=== PATIENT | female | born 1955 | race Caucasian/White ===

== ENCOUNTER 2021-12-21 16:07 | Emergency (ER) | payer MEDICARE ==
[2021-12-21 17:41] LABS: Bacteria,Urine 1+ /HPF (Negative); Bilirubin,Urine NEG (Negative); Blood,Urine NEG (Negative); Color,Urine Yellow (Yellow); Protein,Urine <15 mg/dL mg/dL (Negative); Urobilinogen,Urine < 2.0 mg/dL (<2.0)
[2021-12-21 18:36] LABS: Basophils # (Auto) 0.1 K/mm3 (0.0-0.1); Basophils % (Auto) 0.9 % (0.0-1.8); Eosinophils % (Auto) 0.6 % (0.0-4.3); Hematocrit 46.4 % (30.3-42.9); Hemoglobin 15.3 gm/dl (10.1-14.3); Lymphocytes # (Auto) 2.4 K/mm3 (1.2-5.4); Lymphocytes % (Auto) 30.2 % (13.4-35.0); Mean Corpuscular HGB Conc 33 % (30-34); Mean Corpuscular Volume 95 fl (79-97); Monocytes # (Auto) 0.6 K/mm3 (0.0-0.8); Monocytes % (Auto) 7.1 % (0.0-7.3); Platelet Count 225 K/mm3 (140-440); Red Blood Count 4.89 M/mm3 (3.65-5.03); Red Cell Distribution Width 14.3 % (13.2-15.2)
[2021-12-21 18:41] LABS: Alanine Aminotransferase 32 units/L (7-56); Albumin 4.6 g/dL (3.9-5); BUN/Creatinine Ratio 20; Blood Urea Nitrogen 16 mg/dL (7-17); Calcium 10.2 mg/dL (8.4-10.2); Hemolysis Index 3
[2021-12-22] MEDS ORDERED: INSULIN REGULAR, HUMAN 100 UNITS/1 ML IV ONE (02:42)
[2021-12-22] MEDS ORDERED: SODIUM CHLORIDE 0.9% 1000 ML 1,000 ML IV ONE (02:42)
[2021-12-22] MEDS ORDERED: IBUPROFEN 400 MG TAB PO ONE (02:53)
[2021-12-22] MEDS ORDERED: ACETAMINOPHEN 325 MG TAB PO ONE (02:53)
--- NOTE | 2021-12-22 02:57 | Emergency Department Report ---
ED General Adult HPI - General Chief complaint: Hyperglycemia Stated complaint: HIGH BLOOD SUGAR /CRAMP/CHEST DISCOMFORT/DRY COUGH Time Seen by Provider: 12/22/21 02:32 Source: patient, RN notes reviewed Mode of arrival: Ambulatory Limitations: No Limitations - History of Present Illness Initial comments: The patient was evaluated in the emergency department for symptoms described in the history of present illness. He/she was evaluated in the context of the global COVID-19 pandemic, which necessitated consideration that the patient might be at risk for infection with the virus that causes COVID-19. Institutional protocols and algorithms that pertain to the evaluation of patients at risk for COVID-19 are in a state of rapid change based on info rmation released by regulatory bodies including the CDC and federal and state organizations. These policies and algorithms were followed during the patient's care in the emergency department. Please note that these policies, procedures and recommendations changed on a rapid basis. Primary CARE doctor: Dr. Vianca Dobbs This patient is a 66-year-old female. She presents to the ER today with a request for medication refill; rybelsus 7 mg, which she has been out of for about 2 weeks, with secondary complaints of painless heart racing and fluttering, lower extremity pain and cramping, burning-like in nature. Patient currently denies headache, neck pain, chest pain, abdominal pain, shortness of breath, vomiting, diarrhea and dysuria. She endorses increased thirst. She also has chronic back pain, for which she receives steroid injections. She believes that her recent hemoglobin A1c decreased from 6.5-6.1. -: Gradual, week(s) Location: back, left, right, lower extremity Quality: other (Lower extremity cramping, burning) Consistency: constant Improves with: rest Worsens with: other (Movement, palpation and sleeping of lower extremity) - Related Data Previous Rx's Medication Instructions Recorded Last Taken Type Semaglutide [Rybelsus] 7 mg PO QAM #14 tab 12/22/21 Unknown Rx Allergies Allergy/AdvReac Type Severity Reaction Status Date / Time grass pollen Allergy Rash Verified 12/21/21 17:10 latex Allergy Rash Verified 12/21/21 17:10 metformin Allergy Unknown Verified 12/21/21 17:10 rosuvastatin Allergy Unknown Verified 12/21/21 17:10 Flu vaccine Allergy Unknown Uncoded 12/21/21 17:10 ED Review of Systems ROS: Stated complaint: HIGH BLOOD SUGAR /CRAMP/CHEST DISCOMFORT/DRY COUGH Other details as noted in HPI Constitutional: denies: fever Eyes: denies: eye discharge ENT: denies: hearing loss Respiratory: denies: cough Cardiovascular: denies: chest pain Endocrine: increased thirst Gastrointestinal: denies: abdominal pain, vomiting, diarrhea Genitourinary: denies: dysuria Musculoskeletal: back pain, arthralgia, myalgia Neurological: denies: weakness ED Past Medical Hx - Past Medical History Previous Medical History?: Yes Hx Diabetes: Yes Additional medical history: Arrhythmia - Surgical History Past Surgical History?: Yes Additional Surgical History: Hysterectomy - Medications Home Medications: Home Medications Medication Instructions Recorded Confirmed Last Taken Type Semaglutide [Rybelsus] 7 mg PO QAM #14 tab 12/22/21 Unknown Rx ED Physical Exam - General Limitations: No Limitations General appearance: alert, in no apparent distress, obese - Head Head exam: Present: atraumatic, normocephalic - Eye Eye exam: Present: normal appearance, EOMI. Absent: nystagmus - ENT ENT exam: Present: normal exam, normal orophraynx, mucous membranes moist, normal external ear exam - Neck Neck exam: Present: normal inspection, full ROM. Absent: tenderness, meningismus - Respiratory Respiratory exam: Present: normal lung sounds bilaterally. Absent: respiratory distress, wheezes, rales, rhonchi, stridor, decreased breath sounds - Cardiovascular Cardiovascular Exam: Present: regular rate, normal rhythm, normal heart sounds. Absent: bradycardia, tachycardia, irregular rhythm, systolic murmur, diastolic murmur, rubs, gallop - GI/Abdominal GI/Abdominal exam: Present: soft. Absent: distended, tenderness, guarding, rebound, rigid, pulsatile mass - Extremities Exam Extremities exam: Present: normal inspection, full ROM, pedal edema (1+ edema noted in the bilateral lower extremity), other (2+ pulses noted in the bilateral upper and lower extremities. There is no palpable cord. negative Homans sign. Muscular compartments are soft. The pelvis is stable.). Absent: calf tender ness - Back Exam Back exam: Present: normal inspection. Absent: tenderness, CVA tenderness (R), CVA tenderness (L), paraspinal tenderness, vertebral tenderness - Neurological Exam Neurological exam: Present: alert, oriented X3, other (No facial droop. Tongue midline. Extraocular movements intact bilaterally. Facial sensation intact to light touch in V1, V2, V3 distribution bilaterally. 5 and a 5 strength in 4 extremities. Sensation intact to light touch in 4 extremities.) - Psychiatric Psychiatric exam: Present: normal affect, normal mood - Skin Skin exam: Present: warm, dry, intact, normal color. Absent: rash ED Course Vital Signs 12/21/21 17:04 Temperature 98.2 F Pulse Rate 89 Respiratory 18 Rate Blood Pressure 130/82 O2 Sat by Pulse 96 Oximetry - Reevaluation(s) Reevaluation #1: 12/22/21 03:50 Differential diagnosis, including but not limited to: Medication refill, hyperglycemia, neuropathic pain Assessment and plan: 66-year-old female, who is afebrile, with reassuring vital signs, in no acute distress and clinically sober, GCS of 15, with a primary complaint of request for medication refill, secondary complaint of polydipsia, hyperglycemia, third complaint of burning lower extremity neuropathic pain. Patient received fluids and insulin. Hyperglycemia is chronic and without anion gap acidosis. We will give the patient a 2-week refill on her Rybelsus Educated patient as to the natural history of neuropathic pain. Patient is currently being seen by a pain specialist for pain injection for her lower back. She can take Tylenol and Motrin for her neuropathic pain, and I will defer to her primary care doctor to initiate additional medications for neuropathic pain. Patient is observed in this ER for hours without clinical decompensation. She is suitable for discharge with outpatient follow-up ED Medical Decision Making - Lab Data Result diagrams: 12/21/21 17:45 12/21/21 17:45 Vital Signs 12/21/21 17:04 Temperature 98.2 F Pulse Rate 89 Respiratory 18 Rate Blood Pressure 130/82 O2 Sat by Pulse 96 Oximetry Lab Results 12/21/21 12/21/21 12/21/21 Range/Units 17:08 17:45 17:45 WBC 8.1 (4.5-11.0) K/mm3 RBC 4.89 (3.65-5.03) M/mm3 Hgb 15.3 H (10.1-14.3) gm/dl Hct 46.4 H (30.3-42.9) % MCV 95 (79-97) fl MCH 31 (28-32) pg MCHC 33 (30-34) % RDW 14.3 (13.2-15.2) % Plt Count 225 (140-440) K/mm3 Lymph % (Auto) 30.2 (13.4-35.0) % Yell % (Auto) 7.1 (0.0-7.3) % Eos % (Auto) 0.6 (0.0-4.3) % Baso % (Auto) 0.9 (0.0-1.8) % Lymph # (Auto) 2.4 (1.2-5.4) K/mm3 Yell # (Auto) 0.6 (0.0-0.8) K/mm3 Eos # (Auto) 0.0 (0.0-0.4) K/mm3 Baso # (Auto) 0.1 (0.0-0.1) K/mm3 Seg Neutrophils % 61.2 (40.0-70.0) % Seg Neutrophils # 4.9 (1.8-7.7) K/mm3 Sodium 138 (137-145) mmol/L Potassium 4.8 (3.6-5.0) mmol/L Chloride 100.9 (98-107) mmol/L Carbon Dioxide 25 (22-30) mmol/L Anion Gap 17 mmol/L BUN 16 (7-17) mg/dL Creatinine 0.8 (0.6-1.2) mg/dL Estimated GFR > 60 ml/min BUN/Creatinine Ratio 20 % Glucose 397 H (65-100) mg/dL Calcium 10.2 (8.4-10.2) mg/dL Total Bilirubin 0.40 (0.1-1.2) mg/dL AST 13 (5-40) units/L ALT 32 (7-56) units/L Alkaline Phosphatase 79 (35-129) units/L Total Protein 6.6 (6.3-8.2) g/dL Albumin 4.6 (3.9-5) g/dL Albumin/Globulin Ratio 2.3 % Lipase 35 (13-60) units/L Urine Color Yellow (Yellow) Urine Turbidity Clear (Clear) Urine pH 6.0 (5.0-7.0) Ur Specific [place] 1.039 H (1.003-1.030) Urine Protein <15 mg/dl (Negative) mg/dL Urine Glucose (UA) >=500 (Negative) mg/dL Urine Ketones 20 (Negative) mg/dL Urine Blood Neg (Negative) Urine Nitrite Neg (Negative) Urine Bilirubin Neg (Negative) Urine Urobilinogen < 2.0 (<2.0) mg/dL Ur Leukocyte Esterase Neg (Negative) Urine WBC (Auto) 1.0 (0.0-6.0) /HPF Urine RBC (Auto) 4.0 (0.0-6.0) /HPF U Epithel Cells (Auto) 2.0 (0-13.0) /HPF Urine Bacteria (Auto) 1+ (Negative) /HPF - EKG Data -: EKG Interpreted by Ct EKG shows normal: sinus rhythm Rate: normal - EKG Data 12/22/21 03:47 The EKG is interpreted at 03: 00 Sinus rhythm, rate 65 bpm. Left axis deviation, normal P wave axis, normal intervals, nonspecific T wave abnormality. This is an abnormal EKG, there is a left anterior fascicular block. The patient denies chest pain. This EKG is not a STEMI Critical care attestation.: If time is entered above; I have spent that time in minutes in the direct care of this critically ill patient, excluding procedure time. ED Disposition Clinical Impression: Hyperglycemia, Medication refill, Neuropathic pain of both legs Disposition: 01 HOME / SELF CARE / HOMELESS Is pt being admited?: No Does the pt Need Aspirin: No Condition: Good Instructions: Neuropathic Pain Additional Instructions: Please adhere to a diabetic appropriate diet. Patient may reference the [place] [employer] website for instructions on how to construct an appropriate diabetic diet. Patient will receive a 2-week refill on her Rybelsus medication. Strongly encourage patient to follow-up before then with her primary care doctor, for a longer term refill. Patient may take [id number] ibuprofen and/or acetaminophen as needed for lower extremity pain/presumed neuropathic pain. Patient may also consult with her primary care doctor for additional interventions to assist with neuropathic pain. Patient may also consider complementary outpatient therapy, such as massage, acupuncture, Eastern medicine, or aquatic therapy/nonweightbearing exercise. Please drink at least 4 cups of water per day. Avoid consumption of heavy and spicy foods, alcohol, tobacco, smoke products, simple carbohydrates, and excessive sugars. Please return to the emergency room right away with new pain, worsened pain, migration of pain, projectile vomiting, change in mental status, confusion, inability tolerate liquid feeds, new, worsened or different symptoms not present on the initial emergency room evaluation Referrals: VIANCA ALCARAZ MD [Staff Physician] - 3-5 Days Forms: Work/School Release Form(ED)
[2021-12-22 04:35] VITALS: BP 130/86
--- NOTE | 2021-12-22 18:19 | Electrocardiograph Report ---
[facility] Test Date: 2021-12-22 Test Time: 02:53:38 Pat Name: RYAN ETRRELL Department: Room: Gender: F [employer]: EB : [id number] Requested By: DC ART Order Number: [id number] Reading MD: Judith Delong Measurements Intervals Freedom Rate: 65 P: 26 MA: 147 QRS: -11 QRSD: 74 T: 14 QT: 402 QTc: 418 Interpretive Statements Sinus rhythm Low voltage, precordial leads No previous ECG available for comparison Electronically Signed On 12-22-2021 18:18:57 EDT by Judith Delong
== END 2021-12-22 04:35 | disposition home or self-care (01) ==
LOC: ED 16:07
DX: E11.65 Type 2 diabetes mellitus with hyperglycemia (principal); Z76.0 Encounter for issue of repeat prescription; M79.605 Pain in left leg; M79.604 Pain in right leg; I49.9 Cardiac arrhythmia, unspecified; Z90.710 Acquired absence of both cervix and uterus; Z88.7 Allergy status to serum and vaccine; Z88.8 Allergy status to other drugs, medicaments and biological substances; Z91.040 Latex allergy status; Z91.048 Other nonmedicinal substance allergy status
CPT/HCPCS: 36415; 80053; 81001; 83690; 85025; 93005; 96361; 96374; 99283; J7030; Q9967; J1815

== ENCOUNTER 2021-12-27 18:51 | Emergency (ER) | payer MEDICARE ==
[2021-12-28] MEDS ORDERED: SODIUM CHLORIDE 0.9% 1000 ML 1,000 ML IV ONE (09:35)
[2021-12-28] MEDS ORDERED: ONDANSETRON 4 MG/2 ML INJ IV ONE (09:35)
[2021-12-28 10:35] LABS: Basophils % (Auto) 0.6 % (0.0-1.8); Eosinophils # (Auto) 0.1 K/mm3 (0.0-0.4); Eosinophils % (Auto) 0.8 % (0.0-4.3); Hematocrit 43.3 % (30.3-42.9); Lymphocytes # (Auto) 2.5 K/mm3 (1.2-5.4); Lymphocytes % (Auto) 37.3 % (13.4-35.0); Mean Corpuscular HGB Conc 35 % (30-34); Mean Corpuscular Volume 96 fl (79-97); Monocytes # (Auto) 0.6 K/mm3 (0.0-0.8); Monocytes % (Auto) 8.6 % (0.0-7.3); Platelet Count 164 K/mm3 (140-440); Red Blood Count 4.53 M/mm3 (3.65-5.03); Red Cell Distribution Width 14.2 % (13.2-15.2)
[2021-12-28 10:54] LABS: Blood Urea Nitrogen 16 mg/dL (7-17); Calcium 9.9 mg/dL (8.4-10.2); Hemolysis Index 12
[2021-12-28 11:01] LABS: BUN/Creatinine Ratio 27
--- NOTE | 2021-12-28 11:14 | Emergency Department Report ---
ED General Adult HPI - General Chief complaint: Hyperglycemia Stated complaint: HIGH GLUCOSE Time Seen by Provider: 12/28/21 09:32 Source: patient Mode of arrival: Ambulatory Limitations: No Limitations - History of Present Illness Initial comments: HYPERGLYCEMIA SINCE THURSDAY, STATES CBG IN 300'S AT HOME. PT REPORTS THAT SHE IS OUT OF HER GLIMEPIRIDE WITH THE LAST DOSE BEING THURSDAY. CBG AT TRIAGE 338 PT ASYMPTOMATIC -: Gradual, days(s) - Related Data Previous Rx's Medication Instructions Recorded Last Taken Type Semaglutide [Rybelsus] 7 mg PO QAM #14 tab 12/22/21 Unknown Rx AtorvaSTATin 10 mg PO QHS #30 tab 12/28/21 Unknown Rx Dulaglutide [Trulicity] 0.5 mg SQ 1XW #30 ml 12/28/21 Unknown Rx Glimepiride 1 mg PO DAILY #30 12/28/21 Unknown Rx Allergies Allergy/AdvReac Type Severity Reaction Status Date / Time grass pollen Allergy Rash Verified 12/21/21 17:10 latex Allergy Rash Verified 12/21/21 17:10 metformin Allergy Unknown Verified 12/21/21 17:10 rosuvastatin Allergy Unknown Verified 12/21/21 17:10 Flu vaccine Allergy Unknown Uncoded 12/21/21 17:10 ED Review of Systems ROS: Stated complaint: HIGH GLUCOSE Other details as noted in HPI Constitutional: denies: chills, fever Eyes: denies: eye pain, eye discharge, vision change ENT: denies: ear pain, throat pain Respiratory: denies: cough, shortness of breath, wheezing Cardiovascular: denies: chest pain, palpitations Endocrine: no symptoms reported Gastrointestinal: denies: abdominal pain, nausea, diarrhea Genitourinary: denies: urgency, dysuria, discharge Musculoskeletal: denies: back pain, joint swelling, arthralgia Skin: denies: rash, lesions Neurological: denies: headache, weakness, paresthesias Psychiatric: denies: anxiety, depression Hematological/Lymphatic: denies: easy bleeding, easy bruising ED Past Medical Hx - Past Medical History Hx Diabetes: Yes Additional medical history: Arrhythmia - Surgical History Additional Surgical History: Hysterectomy - Medications Home Medications: Home Medications Medication Instructions Recorded Confirmed Last Taken Type Semaglutide [Rybelsus] 7 mg PO QAM #14 tab 12/22/21 Unknown Rx AtorvaSTATin 10 mg PO QHS #30 tab 12/28/21 Unknown Rx Dulaglutide [Trulicity] 0.5 mg SQ 1XW #30 ml 12/28/21 Unknown Rx Glimepiride 1 mg PO DAILY #30 12/28/21 Unknown Rx ED Physical Exam - General Limitations: No Limitations General appearance: alert, in no apparent distress - Head Head exam: Present: atraumatic, normocephalic - Eye Eye exam: Present: normal appearance - ENT ENT exam: Present: mucous membranes moist - Neck Neck exam: Present: normal inspection - Respiratory Respiratory exam: Present: normal lung sounds bilaterally. Absent: respiratory distress - Cardiovascular Cardiovascular Exam: Present: regular rate, normal rhythm. Absent: systolic murmur, diastolic murmur, rubs, gallop - GI/Abdominal GI/Abdominal exam: Present: soft, normal bowel sounds - Extremities Exam Extremities exam: Present: normal inspection - Back Exam Back exam: Present: normal inspection - Neurological Exam Neurological exam: Present: alert, oriented X3 - Psychiatric Psychiatric exam: Present: normal affect, normal mood - Skin Skin exam: Present: warm, dry, intact, normal color. Absent: rash ED Course Vital Signs 12/27/21 19:19 Temperature 97.3 F L Pulse Rate 102 H Respiratory 18 Rate Blood Pressure 149/84 O2 Sat by Pulse 96 Oximetry ED Medical Decision Making - Lab Data Result diagrams: 12/28/21 09:57 12/28/21 09:57 Critical care attestation.: If time is entered above; I have spent that time in minutes in the direct care of this critically ill patient, excluding procedure time. ED Disposition Clinical Impression: Medication refill, Hyperglycemia Disposition: 01 HOME / SELF CARE / HOMELESS Is pt being admited?: No Does the pt Need Aspirin: No Condition: Stable Referrals: PRIMARY CARE, [Primary Care Provider] - 3-5 Days
[2021-12-28 11:42] LABS: C-Reactive Protein < 0.30 mg/dL (0.00-1.30)
[2021-12-28 12:10] VITALS: BP 148/83
== END 2021-12-28 12:20 | disposition home or self-care (01) ==
LOC: ED 18:51
DX: E11.65 Type 2 diabetes mellitus with hyperglycemia (principal); Z76.0 Encounter for issue of repeat prescription; Z91.040 Latex allergy status; Z91.09 Other allergy status, other than to drugs and biological substances; Z79.899 Other long term (current) drug therapy
CPT/HCPCS: 36415; 80048; 82010; 82150; 82550; 83690; 85025; 86140; 96361; 96374; 99283; J2405; J7030